=== PATIENT | female | born 1975 | race Caucasian/White ===

== ENCOUNTER 2017-11-11 14:08 | Emergency (ER) | payer OTHER ==
[~2017-11-11] VITALS: Ht 177.8 cm; Wt 86.2 kg
[2017-11-11 14:20] VITALS: BP 136/94
== END 2017-11-11 17:08 | disposition admitted as inpatient to this hospital (09) ==
LOC: ERH 14:08
DX: J06.9 Acute upper respiratory infection, unspecified (principal)

== ENCOUNTER → 2018-07-10 | Day surgery (SDC) | payer OTHER ==
[~2018-07-10] VITALS: Ht 177.8 cm; Wt 95.3 kg
--- NOTE | 2018-07-10 21:32 | Operative Report ---
Operative/Inv Procedure Report Surgery Date: 07/10/18 Name of Procedure: Hysteroscopic myomectomy with myosure device and NovaSure endometrial ablation Pre-Operative Diagnosis: Menometrorrhagia, submucous myoma Post-Operative Diagnosis: Same, pathology pending Estimated Blood Loss: less than 50ml Surgeon/Vp Emerging Media: Albert Alexis MD Anesthesia: laryngeal mask airway Specimens: Submucous myoma and portions of endometrial lining Complications: None Condition: Stable Operative/Procedure Note Note: Patient was taken to the operating room and placed in the dorsal supine position. Anesthesia was obtained without difficulty. The patient was then placed in dorsal lithotomy position and prepped and draped in the usual sterile fashion. A sterile speculum was then placed in the patient's vagina. A single- tooth tenaculum was applied to the anterior lip of the cervix. The cervix was serially dilated to accommodate the myosure hysteroscope. Survey of the uterine cavity revealed an approximately 2 cm anterior submucous myoma. Bilateral ostia and the remaining portion of the uterus appeared normal. The submucous myoma was then resected in the usual fashion with the myosure device. Excellent hemostasis was noted portions of the uterine lining and the remaining 3 quadrants were also resected. The hysteroscope was then carefully removed. The uterine cavity was then assessed with the NovaSure sound. Endometrial ablation was then performed with the NovaSure device in the usual fashion for 1 minute and 45 seconds. The NovaSure was then carefully removed from the patient's uterus and the hysteroscope was reinserted. The cavity was noted to be 100% ablated. All instruments were then removed from the patient's vagina. Excellent hemostasis was noted. All counts were reported to be correct 2. The patient was taken to the recovery room in stable condition. Findings: An approximately 2 cm anterior submucous myoma
== END ==
LOC: STS 02:11
DX: N92.1 Excessive and frequent menstruation with irregular cycle (principal); D25.0 Submucous leiomyoma of uterus; D68.51 Activated protein C resistance; Z80.3 Family history of malignant neoplasm of breast
CPT/HCPCS: 81025; J2250